=== PATIENT | female | born 1980 | race African-American/Black ===

== ENCOUNTER 2020-06-18 15:30 | Emergency (ER) | payer OTHER ==
--- OUTSIDE RECORDS SUMMARY | 2020-06-18 15:32 | XMS REPORT | Continuity of Care Document ---
:1980 Author Organization [facility] t Address [address] [place] [address] Care Team Providers Name Role Phone Chilo KAUFFMAN Attending Clinician Doctor Unassigned, Name Attending Clinician Unavailable Problems This patient has no known problems. Allergies, Adverse Reactions, Alerts This patient has no known allergies or adverse reactions. Medications This patient has no known medications. Procedures This patient has no known procedures. Encounters Start End Encounter Admission Attending Care Care Encounter Source Date/Time Date/Time Type Type Clinicians Facility Department ID 2019-11-26 2019-11-26 Emergency Chilo OKSTEFANIE [id number] 03:53:33 04:18:00 Sam Holt [id number] [place] [id number] [place] [id number] 2019-11-25 2019-11-25 Orders Doctor MEDINA [id number] 00:00:00 00:00:00 Only UnassMICHAEL lou [id number] [place] [facility] [id number] Results This patient has no known results.
--- NOTE | 2020-06-18 16:29 | ER ---
Nurse's Notes [facility] Name: Olga Lidia Albright Age: 39 yrs Sex: Female : 1980 Arrival Date: 06/18/2020 Time: 15:33 Bed 24 Private MD: Diagnosis: Carpal tunnel syndrome, right upper limb;Carpal tunnel syndrome, left upper limb Presentation: 06/18 16:13 Chief complaint: Patient states: haven't been able to feel her fingers for a month or iw two, in both hands, also has tingling pain in her fingers, tips of fingers are numb, also her tooth just started hurting today. Coronavirus screen: At this time, the client does not indicate any symptoms associated with coronavirus-19. Ebola Screen: Patient negative for fever greater than or equal to 101.5 degrees Fahrenheit, and additional compatible Ebola Virus Disease symptoms Patient denies exposure to infectious person. Patient denies travel to an Ebola-affected area in the 21 days before illness onset. No symptoms or risks identified at this time. Initial Sepsis Screen: Does the patient meet any 2 criteria? No. Patient's initial sepsis screen is negative. Does the patient have a suspected source of infection? No. Patient's initial sepsis screen is negative. Risk Assessment: Do you want to hurt yourself or someone else? Patient reports no desire to harm self or others. Onset of symptoms was March 2020. 16:13 Method Of Arrival: Ambulatory iw 16:13 Acuity: ITZEL 4 iw Triage Assessment: 17:00 General: Appears in no apparent distress. Behavior is calm. 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 - Social history:: Smoking status: . - Family history:: not pertinent. - Hospitalizations: : No recent hospitalization is reported. Screenin:02 Abuse screen: Denies threats or abuse. Denies injuries from another. Nutritional iw screening: No deficits noted. Tuberculosis screening: No symptoms or risk factors identified. Fall Risk None identified. Assessment: 16:30 General: Appears in no apparent distress. Behavior is calm, cooperative. Pain: iw Complains of pain in right cheek and right jaw. Neuro: Level of Consciousness is awake, alert, obeys commands, Oriented to person, place, time, situation. Cardiovascular: Patient's skin is warm and dry. Respiratory: Respiratory effort is even, unlabored, Respiratory pattern is regular, symmetrical. GI: Abdomen is flat. Derm: Skin is intact, is healthy with good turgor. Musculoskeletal: Range of motion: intact in all extremities. Vital Signs: 16:13 BP 132 / 81; Pulse 79; Resp 16; Temp 97.7; Pulse Ox 100% on R/A; Weight 92.99 kg; iw Height 5 ft. 4 in. (162.56 cm); 16:13 Body Mass Index 35.19 (92.99 kg, 162.56 cm) iw ED Course: 15:33 Patient arrived in ED. ds1 16:14 Triage completed. iw 16:15 Lynne Albright RN is Primary Nurse. iw 16:15 Acosta Patiño MD is Attending Physician. rn 16:15 Arm band placed on. iw 16:28 Moose Chandler MD is Referral Physician. rn 16:40 Patient has correct armband on for positive identification. iw 17:02 No provider procedures requiring assistance completed. Patient did not have IV access iw during this emergency room visit. Administered Medications: 16:42 Drug: Walnut 5 mg-325 mg 1 tabs {Note: rass 0.} Route: PO; ca1 16:46 Drug: predniSONE 60 mg Route: PO; ca1 Outcome: 16:29 Discharge ordered by . rn 17:02 Discharged to home ambulatory. iw 17:02 Condition: good 17:02 Discharge instructions given to patient, Instructed on discharge instructions, follow up and referral plans. medication usage, Demonstrated understanding of instructions, follow-up care, medications, Prescriptions given X 2. 17:03 Patient left the ED. iw Signatures: Arely Duncan ds1 Lynne Albright RN RN iw Acosta Patiño MD MD rn AcAubree dimas RN RN ca1
--- NOTE | 2020-06-18 16:29 | EDPHYS ---
Physician Documentation [facility] Name: Olga Lidia Albright Age: 39 yrs Sex: Female : 1980 Arrival Date: 06/18/2020 Time: 15:33 Bed 24 Private MD: ED Physician Acosta Patiño HPI: 06/18 16:25 This 39 yrs old Black Female presents to ER via Ambulatory with complaints of Numbness rn - Fingers. 16:25 The patient's problem is reported as paresthesias, in right upper extremity, in left rn upper extremity. Onset: The symptoms/episode began/occurred 2 year(s) ago. The symptoms are alleviated by nothing. The symptoms are aggravated by. Severity of symptoms: At their worst the symptoms were moderate in the emergency department the symptoms have improved. The patient has experienced similar episodes in the past. The patient has not recently seen a physician. Reports 2 years of intermittent tingling and pain to both hands, works a lot with her hands, getting worse, worse at night, only hands. . 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 - Social history:: Smoking status: . - Family history:: not pertinent. - Hospitalizations: : No recent hospitalization is reported. ROS: 16:25 Constitutional: Negative for fever, chills, and weight loss, Eyes: Negative for injury, rn pain, redness, and discharge, Neck: Negative for injury, pain, and swelling, Cardiovascular: Negative for chest pain, palpitations, and edema, Respiratory: Negative for shortness of breath, cough, wheezing, and pleuritic chest pain, Abdomen/GI: Negative for abdominal pain, nausea, vomiting, diarrhea, and constipation, MS/Extremity: Negative for injury and deformity, Skin: Negative for injury, rash, and discoloration, Neuro: + tingling and pain to hands Exam: 16:25 Constitutional: This is a well developed, well nourished patient who is awake, alert, rn and in no acute distress. ENT: + poor dentition with right lower posterior dental fracture. Skin: Warm, dry with normal turgor. Normal color with no rashes, no lesions, and no evidence of cellulitis. MS/ Extremity: Pulses equal, no cyanosis. Neurovascular intact. Full, normal range of motion. Equal circumference. Vital Signs: 16:13 BP 132 / 81; Pulse 79; Resp 16; Temp 97.7; Pulse Ox 100% on R/A; Weight 92.99 kg; iw Height 5 ft. 4 in. (162.56 cm); 16:13 Body Mass Index 35.19 (92.99 kg, 162.56 cm) iw MDM: 16:15 Patient medically screened. rn 16:25 Differential diagnosis: neuropathy, carpal tunnel syndrome. Data reviewed: vital signs, rn nurses notes, and as a result, I will discharge patient. Counseling: I had a detailed discussion with the patient and/or guardian regarding: the historical points, exam findings, and any diagnostic results supporting the discharge/admit diagnosis, the need for outpatient follow up, to return to the emergency department if symptoms worsen or persist or if there are any questions or concerns that arise at home. Special discussion: I discussed with the patient/guardian in detail that at this point there is no indication for admission to the hospital. It is understood, however, that if the symptoms persist or worsen the patient needs to return immediately for re-evaluation. Based on the history and exam findings, there is no indication for further emergent testing or inpatient evaluation. I discussed with the patient/guardian the need to see the hand specialist for further evaluation of the symptoms. ED course: Will place in bilateral cock-up wrist splints, dc with steroids and pain meds, with hand f/u.. 06/18 16:30 Order name: Wrist Splint: bilateral pre-formed cock-up wrist splints; Complete Time: rn 17:03 Administered Medications: 16:42 Drug: Burt 5 mg-325 mg 1 tabs {Note: rass 0.} Route: PO; ca1 16:46 Drug: predniSONE 60 mg Route: PO; ca1 Disposition: 06/18/20 16:29 Discharged to Home. Impression: Carpal tunnel syndrome, right upper limb, Carpal tunnel syndrome, left upper limb. - Condition is Stable. - Discharge Instructions: Carpal Tunnel Syndrome, Wrist Splint, Carpal Tunnel Release. - Prescriptions for Tramadol 50 mg Oral Tablet - take 1 tablet by ORAL route every 8 hours as needed; 12 tablet. Medrol (Chao) 4 mg Oral Tablets, Dose Pack - take 1 tablet by ORAL route as directed - follow package instructions; 1 packet. - Medication Reconciliation Form, Thank You Letter, Antibiotic Education, Prescription Opioid Use form. - Follow up: Moose Chandler MD; When: 1 week; Reason: Recheck today's complaints, Re-evaluation by your physician. - Problem is chronic. - Symptoms are unchanged. Signatures: Lynne Albright RN RN iw Acosta Patiño MD MD rn Acob, JOCELIN Mak RN ca1 Corrections: (The following items were deleted from the chart) 17:03 16:29 06/18/2020 16:29 Discharged to Home. Impression: Carpal tunnel syndrome, right iw upper limb; Carpal tunnel syndrome, left upper limb. Condition is Stable. Forms are Medication Reconciliation Form, Thank You Letter, Antibiotic Education, Prescription Opioid Use. Follow up: Moose Chandler; When: 1 week; Reason: Recheck today's complaints, Re-evaluation by your physician. Problem is chronic. Symptoms are unchanged. rn
[2020-06-18] MEDS ORDERED: HYDROCODONE/APAP 5/325 MG TAB ONE (16:55)
[2020-06-18] MEDS ORDERED: predniSONE 20 MG TAB ONE (16:56)
[2020-06-18 17:39] VITALS: BP 132/81; TEMP 97.7; O2SAT 100
== END 2020-06-18 17:03 | disposition home or self-care (01) ==
LOC: ER 15:30
DX: G56.03 Carpal tunnel syndrome, bilateral upper limbs (principal)
CPT/HCPCS: 99283; J7512

== ENCOUNTER 2025-05-19 22:52 | Emergency (ER) | payer OTHER ==
--- OUTSIDE RECORDS SUMMARY | 2025-05-19 22:56 | XMS REPORT | Continuity of Care Document ---
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
[2025-05-20 00:04] LABS: Urine Culture Reflex Order REFLEXED; Urine Microscopic Reflex YN ORDER UMIC
[2025-05-20] MEDS ORDERED: CEFTRIAXONE 500 MG/VIAL ONE (00:15)
[2025-05-20] MEDS ORDERED: AZITHROMYCIN 250 MG TAB ONE (00:15)
[2025-05-20] MEDS ORDERED: WATER FOR INJ,STERILE 10 ML ONE (00:16)
--- NOTE | 2025-05-20 00:30 | EDPHYS ---
Physician Documentation [facility] Name: Olga Lidia Albright Age: 44 yrs Sex: Female : 1980 Arrival Date: 05/19/2025 Time: 22:52 Bed 8 Private MD: ED Physician Ryan Boswell HPI: 05/20 00:12 This 44 yrs old Black Female presents to ER via Ambulatory with complaints of Vaginal feliciano Discharge. 00:12 The patient presents with vaginal discharge, patient has not had similar discharge in [facility] the past. 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 - Infectious Disease History:: Denies. - Social history:: Smoking status: Patient reports the use of cigarette tobacco products, smokes one-half pack cigarettes per day. ROS: 05/20 00:15 Constitutional: Negative for fever, chills, and weight loss, Eyes: Negative for injury, feliciano pain, redness, and discharge, ENT: Negative for injury, pain, and discharge, Neck: Negative for injury, pain, and swelling, Cardiovascular: Negative for chest pain, palpitations, and edema, Respiratory: Negative for shortness of breath, cough, wheezing, and pleuritic chest pain, Abdomen/GI: Negative for abdominal pain, nausea, vomiting, diarrhea, and constipation, Back: Negative for injury and pain, MS/Extremity: Negative for injury and deformity, Skin: Negative for injury, rash, and discoloration, Neuro: Negative for headache, weakness, numbness, tingling, and seizure, Psych: Negative for depression, anxiety, suicide ideation, homicidal ideation, and hallucinations, Allergy/Immunology: Negative for hives, rash, and allergies, Endocrine: Negative for neck swelling, polydipsia, polyuria, polyphagia, and marked weight changes, : Positive for vaginal discharge, Exam: 00:15 Constitutional: This is a well developed, well nourished patient who is awake, alert, feliciano and in no acute distress. Head/Face: Normocephalic, atraumatic. Eyes: Pupils equal round and reactive to light, extra-ocular motions intact. Lids and lashes normal. Conjunctiva and sclera are non-icteric and not injected. Cornea within normal limits. Periorbital areas with no swelling, redness, or edema. ENT: Nares patent. No nasal discharge, no septal abnormalities noted. Tympanic membranes are normal and external auditory canals are clear. Oropharynx with no redness, swelling, or masses, exudates, or evidence of obstruction, uvula midline. Mucous membranes moist. Neck: Trachea midline, no thyromegaly or masses palpated, and no cervical lymphadenopathy. Supple, full range of motion without nuchal rigidity, or vertebral point tenderness. No Meningismus. Chest/axilla: Normal chest wall appearance and motion. Nontender with no deformity. No lesions are appreciated. Cardiovascular: Regular rate and rhythm with a normal S1 and S2. No gallops, murmurs, or rubs. Normal PMI, no JVD. No pulse deficits. Respiratory: Lungs have equal breath sounds bilaterally, clear to auscultation and percussion. No rales, rhonchi or wheezes noted. No increased work of breathing, no retractions or nasal flaring. Abdomen/GI: Soft, non-tender, with normal bowel sounds. No distension or tympany. No guarding or rebound. No evidence of tenderness throughout. Back: No spinal tenderness. No costovertebral tenderness. Full range of motion. Skin: Warm, dry with normal turgor. Normal color with no rashes, no lesions, and no evidence of cellulitis. MS/ Extremity: Pulses equal, no cyanosis. Neurovascular intact. Full, normal range of motion., bilateral aka Neuro: Awake and alert, GCS 15, oriented to person, place, time, and situation. Cranial nerves II-XII grossly intact. Motor strength 5/5 in all extremities. Sensory grossly intact. Cerebellar exam normal. Normal gait. Psych: Awake, alert, with orientation to person, place and time. Behavior, mood, and affect are within normal limits. 00:15 : CVA tenderness, is absent, Pelvic Exam: the exam is deferred, Bladder: is normal, Sexual behavior: the patient is sexually active, and reports a single partner, Vital Signs: 05/19 23:22 BP 136 / 85; Pulse 99; Resp 18; Temp 98.6; Pulse Ox 98% ; Weight 108.86 kg; Height 5 cp4 ft. 4 in. ; Pain 0/10; 05/20 00:28 BP 116 / 76; Pulse 91; Resp 18; Pulse Ox 100% ; cp4 05/19 23:22 Body Mass Index 41.20 (108.86 kg, 162.56 cm) 4 05/19 23:22 Pain Scale: Adult cp4 MDM: 05/19 22:58 Medical Screening Exam initiated [facility] 05/20 00:19 Differential diagnosis: menometrorrhagia, menorrhea, pelvic inflammatory disease, feliciano uterine fibroids, urinary tract infection, vaginosis. Data reviewed: vital signs, nurses notes, lab test result(s), urinalysis. Consideration of Admission/Observation Escalation of care including admission/observation considered. I considered the following discharge prescriptions or medication management in the emergency department Medications were administered in the Emergency Department. See MAR. Test considered but Not performed: Labs: no cbc, no cmp , no abd/pelvis pain , no fever. Historians other than the Patient: pt well informed. Care significantly affected by the following chronic conditions: none. 05/19 22:59 Order name: UA Rfx Shashank Cult if indicated; Complete Time: 00:28 [facility] 05/19 22:59 Order name: PREGU; Complete Time: 00:05 [facility] 05/20 00:22 Order name: Urine Culture EDMS Administered Medications: 00:23 Drug: Rocephin (cefTRIAXone) IM 500 mg IM once Route: IM; Site: right gluteus; kd3 00:23 Drug: AZITHromycin PO 1 grams PO once Route: PO; kd3 00:23 Drug: metroNIDAZOLE PO 2 grams PO once Route: PO; kd3 00:38 Drug: Ciprofloxacin PO 500 mg PO once Route: PO; kd3 Disposition Summary: 05/20/25 00:29 Discharge Ordered Notes: Location: [place] feliciano Problem: new feliciano Symptoms: have improved feliciano Condition: Stable feliciano Diagnosis - Vaginitis, vulvitis and vulvovaginitis in diseases classified elsewhere feliciano - UTI/ Urinary tract infection, site not specified feliciano Followup: feliciano - With: Private Physician - When: 2 - 3 days - Reason: Recheck today's complaints, Re-evaluation by your physician Followup: feliciano - With: Abbi Sosa MD - When: 2 - 3 days - Reason: Recheck today's complaints, Re-evaluation by your physician Discharge Instructions: - Discharge Summary Sheet feliciano - Bacterial Vaginosis feliciano - Dysuria feliciano - Urinary Tract Infection, Adult feliciano - Urinary Tract Infection, Adult, Vnji-dr-Opku feliciano - Vaginitis feliciano - Vaginitis, Scha-jw-Zbaj feliciano - Bacterial Vaginosis, Olgo-cd-Aafj [facility] Forms: - Medication Reconciliation Form [facility] - Antibiotic Education feliciano - Prescription Opioid Use feliciano - Patient Portal Instructions [facility] - Leadership Thank You Letter [facility] Prescriptions: - Doxycycline Hyclate 100 mg Oral tablet - take 1 tablet ORAL route every 12 hours; 14 tablet; Refills: 0, Product [facility] Selection Permitted - Cipro 500 mg Oral Tablet - take 1 tablet ORAL route every 12 hours for 7 days; 14 tablet; Refills: 0, [facility] Product Selection Permitted - Fluconazole 200 mg Oral tablet - take 1 tablet ORAL route one time take one tab x 1, repeat weekly if symptoms feliciano persist x 2 weeks; 3 tablet; Refills: 0, Product Selection Permitted Signatures: Dispatcher [employer] Ryan Spencer MD MD cha Doucette, Kyli, RN RN kd3 Mahi Snow cp4
--- NOTE | 2025-05-20 00:30 | ER ---
Nurse's Notes [facility] Name: Olga Lidia Albright Age: 44 yrs Sex: Female : 1980 Arrival Date: 05/19/2025 Time: 22:52 Bed 8 Private MD: Diagnosis: Vaginitis, vulvitis and vulvovaginitis in diseases classified elsewhere;UTI/ Urinary tract infection, site not specified Presentation: 05/19 23:22 Chief complaint: Patient states: vaginal discharge that started an hour ago. States is cp4 was grayish with no smell. No symptoms reported. Coronavirus screen: Client denies travel out of the [place] in the last 14 days. Ebola Screen: Patient negative for fever greater than or equal to 101.5 degrees Fahrenheit, and additional compatible Ebola Virus Disease symptoms Patient denies exposure to infectious person. Patient denies travel to an Ebola-affected area in the 21 days before illness onset. No symptoms or risks identified at this time. Initial Sepsis Screen: Does the patient meet any 2 criteria? HR > 90 bpm. No. Patient's initial sepsis screen is negative. Does the patient have a suspected source of infection? No. Patient's initial sepsis screen is negative. Risk Assessment: Do you want to hurt yourself or someone else? Patient reports no desire to harm self or others. Onset of symptoms was May 19, 2025 at 22:00. 23:22 Method Of Arrival: Ambulatory cp4 23:22 Acuity: ITZEL 4 cp4 Triage Assessment: 23:23 General: Appears in no apparent distress. comfortable, Behavior is calm, cooperative, cp4 appropriate for age. Pain: Denies pain. EENT: No signs and/or symptoms were reported regarding the EENT system. Neuro: Level of Consciousness is awake, alert, obeys commands, Oriented to person, place, time, situation. Cardiovascular: Patient's skin is warm and dry. Respiratory: Airway is patent Respiratory effort is even, unlabored. GI: No signs and/or symptoms were reported involving the gastrointestinal system. : Reports discharge, white. Derm: No signs and/or symptoms reported regarding the dermatologic system. Musculoskeletal: No signs and/or symptoms reported regarding the musculoskeletal system. 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 - Infectious Disease History:: Denies. - Social history:: Smoking status: Patient reports the use of cigarette tobacco products, smokes one-half pack cigarettes per day. Screenin:24 [facility] ED Fall Risk Assessment (Adult) History of falling in the last 3 months, cp4 including since admission No falls in past 3 months (0 pts) Confusion or Disorientation No (0 pts) Intoxicated or Sedated No (0 pts) Impaired Gait No (0 pts) Mobility Assist Device Used No (0 pt) Altered Elimination No (0 pt) Score/Fall Risk Level 0 - 2 = Low Risk Oriented to surroundings, Maintained a safe environment, Assessed \T\ reinforced patient's understanding of fall precautions, Hourly rounding (assess needs \T\ fall precautionary measures) done. Abuse screen: Denies threats or abuse. Denies injuries from another. Nutritional screening: No deficits noted. Tuberculosis screening: No symptoms or risk factors identified. Never had TB. Assessment: 23:24 Reassessment: No changes from previously documented assessment. 4 Vital Signs: 23:22 BP 136 / 85; Pulse 99; Resp 18; Temp 98.6; Pulse Ox 98% ; Weight 108.86 kg; Height 5 cp4 ft. 4 in. ; Pain 0/10; 05/20 00:28 BP 116 / 76; Pulse 91; Resp 18; Pulse Ox 100% ; cp4 05/19 23:22 Body Mass Index 41.20 (108.86 kg, 162.56 cm) cp4 05/19 23:22 Pain Scale: Adult cp4 ED Course: 05/19 22:54 Patient arrived in ED. jj6 22:58 Ryan Boswell MD is Attending Physician. feliciano 23:21 Mahi Sonw is Primary Nurse. cp4 23:23 Triage completed. cp4 23:23 Arm band placed on right wrist. Patient placed in waiting room. cp4 23:24 Bed in low position. Call light in reach. Side rails up X 1. cp4 05/20 00:29 Abbi Sosa MD is Referral Physician. feliciano 00:38 Provided Education on: Antibiotics . kd3 00:38 No provider procedures requiring assistance completed. Patient did not have IV access kd3 during this emergency room visit. Administered Medications: 00: Drug: Rocephin (cefTRIAXone) IM 500 mg IM once Route: IM; Site: right gluteus; kd3 00: Drug: AZITHromycin PO 1 grams PO once Route: PO; kd3 00:23 Drug: metroNIDAZOLE PO 2 grams PO once Route: PO; kd3 00:38 Drug: Ciprofloxacin PO 500 mg PO once Route: PO; kd3 Medication: 05/19 23:24 VIS not applicable for this client. cp4 Outcome: 05/20 00:29 Discharge ordered by . feliciano 00:38 Discharged to home ambulatory, with family, kd3 00:38 Condition: stable 00:38 Discharge instructions given to patient, family, Instructed on discharge instructions, follow up and referral plans. medication usage, Demonstrated understanding of instructions, follow-up care, medications, Prescriptions given X 3, 00:39 Patient left the ED. kd3 Signatures: Ryan Boswell MD MD cha Jeffries, Jennifer jj6 Doucette, Kyli, RN RN kd3 Mahi Snow cp4
[2025-05-20] MEDS ORDERED: CIPROFLOXACIN HCL 500 MG TAB ONE (00:32)
[2025-05-20 00:46] VITALS: TEMP 98.6
[2025-05-20 00:47] VITALS: BP 116/76; O2SAT 100
== END 2025-05-20 00:39 | disposition home or self-care (01) ==
LOC: ER 22:52
DX: N39.0 Urinary tract infection, site not specified (principal); N77.1 Vaginitis, vulvitis and vulvovaginitis in diseases classified elsewhere; F17.210 Nicotine dependence, cigarettes, uncomplicated
CPT/HCPCS: 87088; 81001; 87086; 81025; 96372; 99284; J0696